=== PATIENT | male | born 1980 | race Caucasian/White ===

== ENCOUNTER 2019-02-13 17:49 | Emergency (ER) | payer OTHER ==
[2019-02-13 18:27] VITALS: BP 97/66; PULSE 57; TEMP 98.1; BMI 26.6
--- NOTE | 2019-02-13 18:29 | PDOC ---
Rapid Medical Evaluation Chief Complaint: Eye Problem Time Seen by Provider: 02/13/19 18:27 Medical Evaluation: Allergies Allergy/AdvReac Type Severity Reaction Status Date / Time No Known Allergies Allergy Verified 02/13/19 18:22 Vital Signs Temp Pulse Resp BP Pulse Ox 98.1 F 57 L 18 97/66 99 02/13/19 18:23 02/13/19 18:23 02/13/19 18:23 02/13/19 18:23 02/13/19 18:23 02/13/19 18:27 Pt presents for r eye redness. States he got dust in his eye at work yesterday. Endorses pain and blurry vision Exam: R eye injected. EOMI, PERRLA Orders: Nothing Pt to proceed to the ER for further evaluation Discharge Disposition - Diagnosis Eye pain - Referrals - Patient Instructions - Post Discharge Activity
--- NOTE | 2019-02-13 19:36 | PDOC ---
History of Present Illness - General Chief Complaint: Eye Problem Stated Complaint: EYE PROBLEM Time Seen by Provider: 02/13/19 18:27 - History of Present Illness Initial Comments: 02/13/19 19:30 CHIEF COMPLAINT: foreign body to eye HISTORY OF PRESENT ILLNESS: 38 yo M with no PMH presents to fast track with irritation to R eye. Patient states he felt something get into his eye yesterday while he was working at a [employer] site. He states the irritation got worse today so he came to the ED. Patient denies wearing contacts. No recent travel or sick contacts. PAST MEDICAL HISTORY: Denies past medical history FAMILY HISTORY: Denies SOCIAL HISTORY: Denies tobacco, alcohol, illicit drug use. SURGICAL HISTORY: Denies ALLERGIES: No known drug allergies REVIEW OF SYSTEMS General/Constitutional: Denies fever or chills. Denies weakness, weight change. HEENT: Right eye redness and irritation. Denies change in vision. Denies ear pain or discharge. Denies sore throat. Cardiovascular: Denies chest pain or shortness of breath. Respiratory: Denies cough, wheezing, or hemoptysis. Gastrointestinal: Denies nausea, vomiting, diarrhea or constipation. Denies rectal bleeding. Genitourinary: Denies dysuria, frequency, or change in urination. Musculoskeletal: Denies joint or muscle swelling or pain. Denies neck or back pain. Skin and breasts: Denies rash or easy bruising. Neurologic: Denies headache, vertigo, loss of consciousness, or loss of sensation. PHYSICAL EXAM General Appearance: Well-appearing, appropriately dressed. No apparent distress , no intoxication. HEENT: Injection to R eye. EOMI, PERRLA, normal ENT inspection, normal voice, TMs normal, pharynx normal. No conjunctival pallor. No photophobia, scleral icterus. Neck: Supple. Trachea midline. No tenderness, rigidity, carotid bruit, stridor , lymphadenopathy, or thyromegaly. Respiratory/Chest: Lungs CTAB. No shortness of breath, chest tenderness, respiratory distress, accessory muscle use. No crackles, rales, rhonchi, stridor , wheezing, dullness Cardiovascular: RRR. S1, S2. No JVD, murmur, bradycardia, tachycardia. Vascular Pulses: Dorsalis-Pedis (R): 2+, Dorsalis-Pedis (L): 2+ Gastrointestinal/Abdominal: Normal bowel sounds. Abdomen soft, non-distended. No tenderness or rebound tenderness. No organomegaly, pulsatile mass, guarding , hernia, hepatomegaly, splenomegaly. Lymphatic: No adenopathy, tenderness. Musculoskeletal/Extremities: Normal inspection. FROM of all extremities, normal capillary refill. Pelvis Stable. No CVA tenderness. No tenderness to extremities, pedal edema, swelling, erythema or deformity. Integumentary: Appropriate color, dry, warm. No cyanosis, erythema, jaundice or rash Neurologic: application packager II-XII intact. Fully oriented, alert. Appropriate mood/affect. Motor strength 5/5. No appreciable EOM palsy, facial droop or sensory deficit. Past History - Past Medical History Allergies/Adverse Reactions: Allergies Allergy/AdvReac Type Severity Reaction Status Date / Time No Known Allergies Allergy Verified 02/13/19 18:22 Home Medications: Ambulatory Orders Erythromycin 0.5% Eye Ointment [Erythromycin 0.5% Eye Ointment -] 1 applic OD QID #1 tube 02/13/19 COPD: No - Immunization History Immunization Up to Date: No - Suicide/Smoking/Psychosocial Hx Smoking History: Current every day smoker Have you smoked in the past 12 months: Yes Number of Cigarettes Smoked Daily: 2 Information on smoking cessation initiated: Yes 'Breaking Loose' booklet given: 11/22/17 Hx Alcohol Use: Yes Drug/Substance Use Hx: No Substance Use Type: None *Physical Exam - Vital Signs Last Vital Signs Temp Pulse Resp BP Pulse Ox 98.1 F 57 L 18 97/66 99 02/13/19 18:23 02/13/19 18:23 02/13/19 18:23 02/13/19 18:23 02/13/19 18:23 Medical Decision Making - Medical Decision Making 02/13/19 19:34 38 yo M with no PMH presents to fast track with irritation to R eye. Flourescein stain to R eye reveals corneal abrasion to 10oclock to 7o clock of cornea. No globe rupture, no foreign body appreciated. Will rx erythromycin eye ointment. Advised patient to use medication as prescribed and follow up with ophtho if symptoms persist. Advised patient of signs and symptoms for return to ED. Patient verbalized understanding and agrees to plan. *DC/Admit/Observation/Transfer Diagnosis at time of Disposition: Corneal abrasion Qualifiers: Encounter type: initial encounter Laterality: right Qualified Code(s): S05.01XA - Injury of conjunctiva and corneal abrasion without foreign body, right eye, initial encounter - Discharge Dispostion Disposition: HOME Condition at time of disposition: Stable Decision to Admit order: No - Prescriptions Prescriptions: Erythromycin 0.5% Eye Ointment [Erythromycin 0.5% Eye Ointment -] 1 applic OD QID #1 tube - Referrals Referrals: Derick Leary MD [Staff Physician] - - Patient Instructions Printed Discharge Instructions: DI for Corneal Abrasion Additional Instructions: Please use eye ointment as prescribed. Follow up with ophthalmology if symptoms persist past 5 days. If you develop any worsening pain, swelling, vision changes, or any new or worsening symptoms, please return to the ER immediately. - Post Discharge Activity Forms/Work/School Notes: Back to Work
== END 2019-02-13 19:49 | disposition home or self-care (01) ==
LOC: JERFT 17:49
DX: S05.01XA Injury of conjunctiva and corneal abrasion without foreign body, right eye, initial encounter (principal); F17.210 Nicotine dependence, cigarettes, uncomplicated; X58.XXXA Exposure to other specified factors, initial encounter; Y93.89 Activity, other specified; Y92.89 Other specified places as the place of occurrence of the external cause
CPT/HCPCS: 99281-25